=== PATIENT | male | born 1995 | race Caucasian/White ===

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

== ENCOUNTER 2018-10-01 12:21 | Emergency (ER) | payer BC, MEDICAID, OTHER ==
[2018-10-01 12:43] VITALS: BP 133/88; PULSE 95
[2018-10-01] MEDS ORDERED: Acetaminophen/HYDROcodone 325-5 MG Tab PO ONE (12:59)
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
--- NOTE | 2018-10-01 14:55 | CR ---
Ankle Min 3V Rt CLINICAL HISTORY: Injury FINDINGS: The soft tissues are swollen. There is a transverse lucency across the tip of the medial malleolus. Fracture is not excluded. Ankle mortise is anatomic. There is calcification at the plantar fascial insertion. Impression: Transverse lucency and some irregularity of the tip of the medial malleolus. This could represent the secondary ossification centers but an avulsion of the tip of the medial malleolus is not excluded. Soft tissue swelling Calcification at the Achilles insertion
--- NOTE | 2018-10-01 14:57 | CR ---
Calcaneous Rt CLINICAL HISTORY: Injury COMPARISON: None FINDINGS: There is a comminuted slightly displaced fracture of the calcaneus. There is some calcification near the insertion of the plantar fascia. IMPRESSION: Comminuted displaced fracture of the first through third of the calcaneus
== END 2018-10-01 14:30 | disposition home or self-care (01) ==
LOC: JP.ED 12:21
DX: S92.001A Unspecified fracture of right calcaneus, initial encounter for closed fracture (principal); X58.XXXA Exposure to other specified factors, initial encounter
CPT/HCPCS: 29515; 73610; 73650; 99283; A9270